=== PATIENT | female | born 1960 | race Caucasian/White ===

== ENCOUNTER 2020-12-15 15:29 | Emergency (ER) | payer OTHER, SELFPAY ==
--- NOTE | ~2020-12-15 | XR_ITS ---
XR ankle RT min 3V 12/15/2020 15:48 INDICATION: Right ankle pain PROCEDURE: 4 views right ankle COMPARISON: No prior studies for comparison. FINDINGS: Fracture, dislocation or subluxation is not identified. Ankle mortise intact. The soft tiss ues appear within normal limits. No foreign bodies are identified. IMPRESSION: 1: NO ACUTE BONE OR JOINT ABNORMALITY IDENTIFIED. Reviewed, dictated and finalized at location B.
--- NOTE | 2020-12-15 15:31 | ED.GENADULT ---
HPI - General Adult General Chief complaint: Extremity Injury, Lower Stated complaint: rt ankle injury Time Seen by Provider: 12/15/20 15:31 Source: patient Mode of arrival: ambulatory Limitations: no limitations History of Present Illness HPI narrative: 60-year-old female patient presents to the [facility] with complaints of right ankle pain today. Patient states that she was in her garden today guarding when she went to go and stand up she turned and tripped over one of her garden stones. Patient states this happened approximately 30 minutes prior to arrival today. Patient denies taking anything for pain. Patient states the pain is mostly on the right ankle on the lateral side. Related Data Home Medications Medication Instructions Recorded Confirmed albuterol sulfate INHALATION 12/15/20 atorvastatin 12/15/20 budesonide PO 12/15/20 diclofenac sodium TOPICAL 12/15/20 famotidine 12/15/20 lisinopril 12/15/20 meclizine mg 12/15/20 sertraline mg 12/15/20 tizanidine mg 12/15/20 tramadol mg 12/15/20 Allergies Allergy/AdvReac Type Severity Reaction Status Date / Time No Known Allergies Allergy Verified 11/19/16 16:51 Review of Systems Review of Systems: Narrative: CONSTITUTIONAL: Denies fever, chills, or sweats. EYES: Denies visual changes, redness, or discharge. ENT: Denies rhinorrhea, congestion, sore throat, or otalgia. CARDIOVASCULAR: Denies chest pain, palpitations, or edema. RESPIRATORY: Denies cough or dyspnea. GASTROINTESTINAL: Denies abdominal pain, nausea, vomiting, or diarrhea. GENITOURINARY: Denies dysuria or hematuria. SKIN: Denies rash or itching. MUSCULOSKELETAL: Denies back pain, joint pain, or myalgia. Positive right ankle pain NEUROLOGIC: Denies headache, numbness, or weakness. PSYCHIATRIC: Denies anxiety or depression. [facility] Past Medical History Medical History (Updated 12/15/20 @ 16:15 by YAQUELIN Aldana) Anxiety Cervical cancer Chronic back pain Chronic vertigo Crohn's disease Diabetes GERD (gastroesophageal reflux disease) Heart murmur Hypercholesterolemia Hypertension Surgical History Surgical History (Updated 12/15/20 @ 16:15 by YAQUELIN Aldana) H/O tubal ligation History of bladder surgery Bladder cancer, tumors removed History of hysterectomy History of intestinal surgery Resection, 1999 Comments At the time of my signature I agree with nursing past medical history, surgical, social, and family history. There is no relevant family history pertinent to the presenting complaint. Exam Narrative: Exam Narrative: GENERAL: Well-appearing, well-nourished, and in no acute distress. HEAD: Normocephalic, atraumatic. EYES: PERRLA and EOMI. ENT: Nares clear, no rhinorrhea or epistaxis. Mucous membranes moist. NECK: Supple. No lymphadenopathy CHEST: Clear to auscultation. No respiratory distress. HEART: Regular rate and rhythm. No murmur heard. Normal peripheral pulses. ABDOMEN: Soft, nontender, nondistended, normal active bowel sounds. EXTREMITIES: Patient is unable to bear weight and ambulate without pain. The R ankle is without obvious asymmetry or deformity when compared to the L ankle. Patient can flex/extend, invert/kenny. No obvious surface trauma, ecchymosis. There is some obvious soft tissue swelling noted over the lateral malleolus and lateral side of the ankle. Bony tenderness to palpation over the lateral malleolus. Anterior talofibular ligament, posterior talofibular ligament, calcaneofibular ligament nontender and without swelling. No tenderness or deformity of the midfoot or over the proximal fifth metatarsal. Good DP and posterior tibial pulses and sensation to light touch normal. Talar tilt test is negative for ligament laxity to valgus or vargus stress. Negative anterior draw. Peroneal nerve is intact with strong eversion and plantar flexion. SKIN: Warm, dry, no rash. NEURO: No focal deficits. Alert and oriented x3. Course Vital Signs Vital
[2020-12-15 15:44] VITALS: BP 134/79; PULSE 68; RESP 16; TEMP 36.7; O2SAT 100
== END 2020-12-15 16:24 | disposition home or self-care (01) ==
PROVIDERS: Emergency Provider Nurse Practitioner Family
DX: S93.401A Sprain of unspecified ligament of right ankle, initial encounter (principal); W22.8XXA Striking against or struck by other objects, initial encounter; Y93.H2 Activity, gardening and landscaping; F41.9 Anxiety disorder, unspecified; E11.9 Type 2 diabetes mellitus without complications; K21.9 Gastro-esophageal reflux disease without esophagitis; E78.00 Pure hypercholesterolemia, unspecified; I10 Essential (primary) hypertension; K50.90 Crohn's disease, unspecified, without complications; Z85.41 Personal history of malignant neoplasm of cervix uteri; Z85.51 Personal history of malignant neoplasm of bladder
CPT/HCPCS: 73610; 99203; G0463

== ENCOUNTER 2022-12-23 08:00 | Outpatient (RCR) | payer OTHER, SELFPAY ==
--- NOTE | 2022-11-25 17:19 | PTOPEVAL1 ---
Assessment and note entered by Ravinder Cardoso, PT Evaluation Information Assessment Status Evaluation Diagnosis L shoulder pain Onset chronic, but getting worse Subjective Information Patient reports she has L shoulder pain that is mainly felt in the back of her capsule, but it also goes down past the elbow and up to the neck. She has trouble sleeping on her L side as it will wake her up in the middle of the night. She also has trouble washing her hair and taking off her shirts with the L arm. She is R handed. She uses Bengay topical bar along with Tylenol every night . Has used a heating pad also. Reported Pain Level Pain Score 7: Self Report Additional Pain Score Comments describes pain as a gnawing tooth ache. Assessment PT Clinical Summary Noemi is a 62 year old female coming into the clinic with L shoulder pain, Secondary to radiating issues going down the arm checked her neck out. She has decreased range of motion on the L shoulder and neck compared to the R side. Patient also has pain with MMT on the L shoulder and positive empty can test, lift off test, and Hawkin's Dhiraj test. Physical therapy will work on improving posture and correcting muscle and bony alignment along with modalities and manual therapy for pain control. Plan of Care Interventions Electrical Stimulation,Gait Training,Hot Pack/Cold Pack,Manual Therapy,Mechanical Traction,Neuro Re- education,Patient/Caregiver Education,Therapeutic Activities,Therapeutic Exercise,Ultrasound Other Interventions taping PT Services Indicated Yes Treatment Frequency and 1-2x/wk for 8 visits Duration These treatments will address the objective and functional deficits as defined above. The patient will be advanced safely and appropriately in order for the patient to progress towards his/her prior level of function. Additional exercises will be introduced and as well as a comprehensive home exercise program upon discharge, if needed, ?to ensure carryover of functional gains achieved in the clinic. This treatment plan has been reviewed and agreement upon by the patient.
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
--- NOTE | 2022-12-14 09:58 | PCPTNOTE ---
Patient did not show up for scheduled appointment this date. Called and spoke with patient she had it down for a different day.
--- NOTE | 2022-12-23 08:54 | PTOPDC ---
Assessment and note entered by Ravinder Cardoso, PT Evaluation Information Assessment Status Discharge Diagnosis L shoulder rotator cuff tendinitis, arthritis Onset chronic, but getting worse Subjective Information Patient reports still having some readiating pain down the L shoulder down to the elbow and 4/10 pain after sleeping, but all in all much better with self reported decreased pain, and improved range of motion. Reported Pain Level Pain Score 0: Self Report Additional Pain Score Comments 4 at its worst after sleeping on it. Throughout the day, not really having any pain. Assessment PT Clinical Summary Noemi is a 62 year old female coming into the clinic with a diagnosis of L shoulder pain with radiating symptoms. She was evaluated on 11/25/22 and attended 4 sessions with 3 cancelations/ no shows. Patient has met her pain and strength goal , most of the the range of motion goals, only issues is really cervical rotation, patient also has some radiating symptoms, but better than prior . Patient reports feeling secure on continuing with her HEP, but being discharged from skilled physical therapy. Plan of Care PT Services Indicated No
== END 2022-12-23 11:31 | disposition home or self-care (01) ==
LOC: ANHPT 08:00
PROVIDERS: PCP Physician Assistant; Visit Provider Physician Assistant
DX: M75.82 Other shoulder lesions, left shoulder (principal); M19.012 Primary osteoarthritis, left shoulder
CPT/HCPCS: 97110; 97112; 97140; 97161; 99199